=== PATIENT | male | born 2000 | race Caucasian/White ===

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

== ENCOUNTER 2021-08-21 18:05 | Emergency (ER) | payer OTHER ==
[~2021-08-21] VITALS: Ht 190.5 cm; Wt 70.9 kg
[2021-08-21 23:14] VITALS: BP 114/69
== END 2021-08-21 23:25 | disposition home or self-care (01) ==
LOC: EMS 18:11
DX: L03.011 Cellulitis of right finger (principal)
CPT/HCPCS: 10060; 99282; 99283

== ENCOUNTER 2021-12-21 14:38 | Emergency (ER) | payer OTHER ==
[~2021-12-21] VITALS: Ht 190.5 cm; Wt 63.6 kg
[2021-12-21 16:21] VITALS: BP 111/67
== END 2021-12-21 16:28 | disposition home or self-care (01) ==
LOC: EMS 14:38
DX: H61.22 Impacted cerumen, left ear (principal)
CPT/HCPCS: 69209; 99282; Z7502

== ENCOUNTER 2023-09-05 19:56 | Emergency (ER) | payer OTHER ==
[~2023-09-05] VITALS: Ht 190.5 cm; Wt 81.0 kg
[2023-09-05 20:01] VITALS: BP 121/71; PULSE 65; RESP 18; TEMP 97.7
[2023-09-05 20:57] LABS: COVID AG,FIA SOURCE NASAL SWAB
[2023-09-05 21:02] LABS: INFLUENZA TYPE A NEGATIVE FOR TYPE A (NEGATIVE); INFLUENZA TYPE B NEGATIVE FOR TYPE B (NEGATIVE)
[2023-09-05 21:03] LABS: SARS-COV2 (COVID) ANTIGEN,FIA Negative (Negative)
== END 2023-09-05 22:43 | disposition left against medical advice (07) ==
LOC: EMS 19:58
DX: R05.9 Cough, unspecified (principal); R51.9 Headache, unspecified; Z20.822 Contact with and (suspected) exposure to COVID-19; Z53.21 Procedure and treatment not carried out due to patient leaving prior to being seen by health care provider
CPT/HCPCS: 87804; 99281; Z7502